=== PATIENT | female | born 1930 | race African-American/Black ===

== ENCOUNTER 2018-09-16 14:03 | Emergency (ER) | payer BC, OTHER ==
[~2018-09-16] VITALS: Ht 160 cm; Wt 55.8 kg
[2018-09-16] MEDS ORDERED: NEOMY/BACITRA/POLYMYXIN B OINT UD PACKET TP ONE ×2 (15:15→16:11)
--- NOTE | 2018-09-16 18:13 | NUR ---
Patient discharged to home in stable conditon. Written and verbal after care instructions given. Patient verbalizes understanding of instructions.pt here to take the pt home. pt talking to er
== END 2018-09-16 18:15 | disposition home or self-care (01) ==
LOC: ER 14:03
DX: S06.0X0A Concussion without loss of consciousness, initial encounter (principal); S02.5XXA Fracture of tooth (traumatic), initial encounter for closed fracture; S63.681A Other sprain of right thumb, initial encounter; S00.83XA Contusion of other part of head, initial encounter; S00.511A Abrasion of lip, initial encounter; V49.9XXA Car occupant (driver) (passenger) injured in unspecified traffic accident, initial encounter; Y93.89 Activity, other specified; Y92.410 Unspecified street and highway as the place of occurrence of the external cause; Y99.8 Other external cause status
CPT/HCPCS: 70450; 70486; 72125; 73140; A4663